=== PATIENT | female | born 1965 | race Caucasian/White ===

== ENCOUNTER 2016-09-23 06:20 | Inpatient (IN) | payer MEDICAID, SELFPAY ==
[~2016-09-23] VITALS: Ht 160 cm; Wt 76.7 kg
[2016-09-23] MEDS ORDERED: PRINIVIL20 MG PO (07:32)
[2016-09-23] MEDS ORDERED: HYDROCHLOROTH12.5 MG PO (07:32)
[2016-09-28] MEDS ORDERED: HABITROL21 MG TOP (07:43)
[2016-09-28] MEDS ORDERED: NORCO 325-5 MG1 TAB PO (07:43)
== END 2016-09-28 10:15 | disposition short-term general hospital (02) | DRG 330 ==
LOC: LAB 06:20 → ER 06:20 → IP 12:27 → SURG 12:27 → IP 09-28 10:15
PROVIDERS: ADMIT Family Medicine
PROC: 0D1M0Z4 Bypass Descending Colon to Cutaneous, Open Approach (ICD-10-PCS; principal; 2016-09-23)
PROC: 0DTN0ZZ Resection of Sigmoid Colon, Open Approach (ICD-10-PCS; principal; 2016-09-23)
PROC: 30233N1 Transfusion of Nonautologous Red Blood Cells into Peripheral Vein, Percutaneous Approach (ICD-10-PCS; 2016-09-26)
DX: K56.60 Unspecified intestinal obstruction (principal); K57.32 Diverticulitis of large intestine without perforation or abscess without bleeding; K57.30 Diverticulosis of large intestine without perforation or abscess without bleeding; F17.210 Nicotine dependence, cigarettes, uncomplicated; F10.20 Alcohol dependence, uncomplicated; Y90.9 Presence of alcohol in blood, level not specified; K58.1 Irritable bowel syndrome with constipation; E87.6 Hypokalemia
CPT/HCPCS: J0330; J1100; J1170; J1335; J1650; J1885; J2185; J2250; J2270; J2405; J2710; J2765; J3010; J8499; Q9963; Q9967

== ENCOUNTER → 2016-09-30 | Outpatient (CLI) | payer MEDICAID ==
[~2016-09-30] MED LIST: HABITROL21 MG TOP; HYDROCHLOROTH12.5 MG PO; NORCO 325-5 MG1 TAB PO; PRINIVIL20 MG PO
== END | disposition short-term general hospital (02) ==
LOC: CLSURG 08:21
DX: Z48.815 Encounter for surgical aftercare following surgery on the digestive system (principal); Z90.49 Acquired absence of other specified parts of digestive tract

== ENCOUNTER → 2016-10-07 | Outpatient (CLI) | payer MEDICAID | END | disposition short-term general hospital (02) | LOC: CLSURG 08:42 | DX: Z48.815 Encounter for surgical aftercare following surgery on the digestive system (principal) ==

== ENCOUNTER → 2017-01-06 | Outpatient (CLI) | payer MEDICAID | END | disposition short-term general hospital (02) | LOC: CLSURG 08:06 | DX: Z43.3 Encounter for attention to colostomy (principal) ==